=== PATIENT | female | born 1965 | race African-American/Black ===

== ENCOUNTER 2022-11-26 21:59 | Emergency (ER) | payer OTHER ==
[~2022-11-26] VITALS: Ht 160 cm; Wt 78.0 kg
[2022-11-26] MEDS ORDERED: LOSARTAN-HCTZ1 EAC2 PO (22:25)
== END 2022-11-27 03:15 | disposition home or self-care (01) ==
LOC: ER 21:59
DX: J10.1 Influenza due to other identified influenza virus with other respiratory manifestations (principal); I10 Essential (primary) hypertension; Z20.822 Contact with and (suspected) exposure to COVID-19